=== PATIENT | male | born 1955 | race Caucasian/White ===

== ENCOUNTER 2019-02-20 13:06 | Outpatient (REF) | payer MEDICARE, OTHER, SELFPAY ==
[2019-02-20 21:49] LABS: Anion Gap 12.1 mmol/L (3-11); BUN 12 mg/dL (7-18); CO2 21.9 mmol/L (21.0-32.0); Chloride 105 mmol/L (98-107); Glucose 82 mg/dL (70-100); Potassium 4.5 mmol/L (3.5-5.1); Sodium 139 mmol/L (136-145); TSH 1.61 uIU/mL (0.358-3.74)
== END 2019-02-20 13:26 ==
LOC: NCHCN 13:06
PROVIDERS: PCP Family Medicine; Visit Provider Nurse Practitioner Family
DX: I10 Essential (primary) hypertension (principal); R63.4 Abnormal weight loss
CPT/HCPCS: 80048; 84443

== ENCOUNTER 2019-05-22 13:09 | Outpatient (REF) | payer MEDICARE, OTHER, SELFPAY ==
[2019-05-22 21:41] LABS: Abs Immature Grans 0.02 k/cumm (0.0-0.09); Absolute Basophil Count 0.14 k/cumm (0.0-0.2); Absolute Eosinophil Count 0.67 k/cumm (0.0-0.7); Absolute Lymphocyte Count 2.19 k/cumm (1.2-3.4); Absolute Monocyte Count 0.89 k/cumm (0.11-0.7); Absolute Neutrophil Count 5.07 k/cumm (1.2-6.7); Basophils % 1.6; Eosinophils % 7.5; HCT 45.8 % (40.0-50.0); HGB 15.9 g/dL (13.5-17.5); Immature Grans % 0.2; Lymphocytes % 24.4; Mean Corp. HGB Concentration 34.7 g/dL (32.0-36.0); Mean Corpuscular Hemoglobin 31.7 pg (27.0-33.0); Mean Corpuscular Volume 91.4 fL (80-95); Mean Platelet Volume 10.3 fL (8.0-11.0); Monocytes % 9.9; Neutrophils % 56.4; Platelet Count 292 x1000/uL (130-400); RBC 5.01 m/cumm (4.50-6.00); RBC Distribution Width 13.5 % (11.8-14.1); White Blood Cell Count 8.98 k/cumm (4.4-10.8)
[2019-05-22 22:14] LABS: ALT 11 U/L (16-63); AST 16 U/L (15-37); Albumin 4.1 g/dL (3.4-5.0); Alkaline Phosphatase 72 U/L (46-116); Bilirubin, Total 0.6 mg/dL (0.2-1.0); Total Protein 6.7 g/dL (6.4-8.2)
[2019-05-22 22:31] LABS: Bilirubin, Direct 0.16 mg/dL (0.00-0.20)
== END 2019-05-22 13:29 ==
LOC: NCHCN 13:09
PROVIDERS: PCP Nurse Practitioner Family; Visit Provider Nurse Practitioner Family
DX: R63.4 Abnormal weight loss (principal); F17.200 Nicotine dependence, unspecified, uncomplicated; G89.4 Chronic pain syndrome; M54.5 Low back pain; Z85.46 Personal history of malignant neoplasm of prostate
CPT/HCPCS: 80076; 85025

== ENCOUNTER 2021-07-11 17:55 | Outpatient (REF) | payer MEDICARE, OTHER, SELFPAY ==
[2021-07-11 17:55] LABS: Anion Gap 8.5 mmol/L (3-11); BUN 14 mg/dL (7-18); CO2 26.5 mmol/L (21.0-32.0); CREATININE 0.8 mg/dL (0.70-1.30); Chloride 104 mmol/L (98-107); Glucose 86 mg/dL (74-106); Magnesium 2.1 mg/dL (1.8-2.4); Potassium 4.5 mmol/L (3.5-5.1); Sodium 139 mmol/L (136-145); Vitamin B12 504 pg/mL (193-986)
== END 2021-07-11 17:56 | disposition home or self-care (01) ==
LOC: NCHCN 17:55
PROVIDERS: PCP Nurse Practitioner Family; Visit Provider Nurse Practitioner Family
DX: I10 Essential (primary) hypertension (principal); K21.9 Gastro-esophageal reflux disease without esophagitis
CPT/HCPCS: 80048; 82607; 83735

== ENCOUNTER 2021-12-08 14:51 | Outpatient (REF) | payer MEDICARE, OTHER, SELFPAY ==
[2021-12-10 12:02] LABS: COVID-19 RT-PCR UVMMC Result Negative (Negative)
== END 2021-12-08 14:52 | disposition home or self-care (01) ==
LOC: NCHCN 14:51
PROVIDERS: PCP Nurse Practitioner Family; Visit Provider Nurse Practitioner Family
DX: Z20.822 Contact with and (suspected) exposure to COVID-19 (principal); J06.9 Acute upper respiratory infection, unspecified
CPT/HCPCS: U0003; U0005

== ENCOUNTER 2022-01-12 15:22 | Outpatient (REF) | payer MEDICARE, OTHER, SELFPAY ==
[2022-01-12 14:57] LABS: ALT 20 U/L (16-63); AST 19 U/L (15-37); Albumin 3.7 g/dL (3.4-5.0); Alkaline Phosphatase 68 U/L (46-116); Bilirubin, Direct 0.1 mg/dL (0.0-0.2); Bilirubin, Total 0.4 mg/dL (0.2-1.0); TSH 1.23 uIU/mL (0.36-3.74); Total Protein 6.1 g/dL (6.4-8.2)
[2022-01-12 23:14] LABS: PSA, Screening <0.1 ng/mL (<=4.5)
== END 2022-01-12 15:23 | disposition home or self-care (01) ==
LOC: NCHCN 15:22
PROVIDERS: PCP Nurse Practitioner Family; Visit Provider Nurse Practitioner Family
DX: I25.10 Atherosclerotic heart disease of native coronary artery without angina pectoris (principal); Z12.5 Encounter for screening for malignant neoplasm of prostate; R63.4 Abnormal weight loss; R41.89 Other symptoms and signs involving cognitive functions and awareness; G89.4 Chronic pain syndrome; M54.59 Other low back pain; G35 Multiple sclerosis; I10 Essential (primary) hypertension
CPT/HCPCS: 80076; 84153; 84443

== ENCOUNTER 2022-06-29 13:48 | Outpatient (REF) | payer MEDICARE, OTHER, SELFPAY ==
[2022-06-29 21:37] LABS: HCT 45.4 % (40.0-50.0); HGB 14.9 g/dL (13.5-17.5); MCH 30.7 pg (27.0-33.0); MCHC 32.8 % (32.0-36.0); MCV 94 fL (80-95); MPV 10.2 fL (8.0-11.0); Platelet Count 267 10^3/uL (130-400); RBC 4.85 10^6/uL (4.36-5.78); RDW-SD 44.6 fL; WBC 7.92 10^3/uL (4.4-10.8)
[2022-06-29 22:29] LABS: Anion Gap 6.1 mmol/L (3-11); BUN 15 mg/dL (7-18); CO2 27.9 mmol/L (21.0-32.0); CREATININE 0.8 mg/dL (0.70-1.30); Calcium 9.3 mg/dL (8.5-10.1); Chloride 104 mmol/L (98-107); Glucose 83 mg/dL (74-106); Potassium 4.7 mmol/L (3.5-5.1); Sodium 138 mmol/L (136-145)
== END 2022-06-29 13:49 | disposition home or self-care (01) ==
LOC: NCHCN 13:48
PROVIDERS: PCP Nurse Practitioner Family; Visit Provider Nurse Practitioner Family
DX: I10 Essential (primary) hypertension (principal); M79.605 Pain in left leg
CPT/HCPCS: 80048; 85027

== ENCOUNTER 2023-05-10 19:51 | Outpatient (REF) | payer MEDICARE, OTHER, SELFPAY ==
[2023-05-10 22:07] LABS: HGB 15.3 g/dL (13.5-17.5); MCH 31.9 pg (27.0-33.0); MCV 94 fL (80-95); Platelet Count 269 10^3/uL (130-400); RDW 13.2 % (11.8-14.1); WBC 8.62 10^3/uL (4.4-10.8)
[2023-05-10 23:24] LABS: ALT 27 U/L (16-63); AST 19 U/L (15-37); Albumin 3.9 g/dL (3.4-5.0); Alkaline Phosphatase 71 U/L (46-116); Anion Gap 8.4 mmol/L (3-11); BUN 13 mg/dL (7-18); Bilirubin, Total 0.5 mg/dL (0.2-1.0); CO2 26.6 mmol/L (21.0-32.0); CREATININE 0.8 mg/dL (0.70-1.30); Calcium 9.7 mg/dL (8.5-10.1); Chloride 102 mmol/L (98-107); Glucose 97 mg/dL (74-106); Potassium 4.2 mmol/L (3.5-5.1); Sodium 137 mmol/L (136-145); Total Protein 6.4 g/dL (6.4-8.2); Vitamin B12 428 pg/mL (193-986)
[2023-05-11 18:47] LABS: PSA, Screening <0.1 ng/mL (<=4.5)
== END 2023-05-10 19:52 | disposition home or self-care (01) ==
LOC: NCHCN 19:51
PROVIDERS: PCP Nurse Practitioner Family; Visit Provider Nurse Practitioner Family
DX: I10 Essential (primary) hypertension (principal); G35 Multiple sclerosis; R41.89 Other symptoms and signs involving cognitive functions and awareness; Z12.5 Encounter for screening for malignant neoplasm of prostate; Z85.46 Personal history of malignant neoplasm of prostate
CPT/HCPCS: 80053; 84153; 85027; 82607

== ENCOUNTER 2024-05-15 15:15 | Outpatient (REF) | payer MEDICARE, OTHER, SELFPAY ==
[2024-05-15 22:03] LABS: Abs Immature Grans 0.03 10^3/uL (0.0-0.06); Absolute Basophil Count 0.11 10^3/uL (0.0-0.2); Absolute Eosinophil Count 0.22 10^3/uL (0.0-0.7); Absolute Lymphocyte Count 1.32 10^3/uL (1.2-3.4); Absolute Monocyte Count 0.49 10^3/uL (0.1-0.8); Absolute Neutrophil Count 5.24 10^3/uL (1.2-6.7); Basophils % 1.5 %; HCT 44.7 % (40.0-50.0); HGB 15.1 g/dL (13.5-17.5); Immature Grans % 0.4 %; Lymphocytes % 17.8 %; MCH 31.7 pg (27.0-33.0); MCHC 33.8 % (32.0-36.0); MCV 94 fL (80-95); MPV 9.6 fL (8.0-11.0); Monocytes % 6.6 %; Neutrophils % 70.7 %; Platelet Count 293 10^3/uL (130-400); RBC 4.76 10^6/uL (4.36-5.78); RDW 13.1 % (11.8-14.1); RDW-SD 44.6 fL; WBC 7.41 10^3/uL (4.4-10.8)
[2024-05-15 22:17] LABS: ALT 27 U/L (16-63); AST 21 U/L (15-37); Albumin 3.8 g/dL (3.4-5.0); Alkaline Phosphatase 112 U/L (46-116); Anion Gap 10.5 mmol/L (3-11); BUN 15 mg/dL (7-18); Bilirubin, Total 0.63 mg/dL (0.2-1.0); CO2 25.5 mmol/L (21.0-32.0); CREATININE 0.9 mg/dL (0.70-1.30); Calcium 9.3 mg/dL (8.5-10.1); Chloride 106 mmol/L (98-107); Estimated GFR 93.03 (mL/min/1.73m2); Glucose 104 mg/dL (74-106); Sodium 142 mmol/L (136-145); Total Protein 6.4 g/dL (6.4-8.2)
[2024-05-16 20:53] LABS: PSA, Screening <0.1 ng/mL (<=4.5)
== END 2024-05-15 15:16 | disposition home or self-care (01) ==
LOC: NCHCN 15:15
PROVIDERS: PCP Nurse Practitioner Family; Visit Provider Nurse Practitioner Family
DX: I10 Essential (primary) hypertension (principal); Z12.5 Encounter for screening for malignant neoplasm of prostate
CPT/HCPCS: 80053; 84153; 85025

== ENCOUNTER 2025-04-30 17:27 | Outpatient (REF) | payer MEDICARE, OTHER, SELFPAY ==
[2025-04-30 21:56] LABS: HCT 42.8 % (40.0-50.0); HGB 14.6 g/dL (13.5-17.5); MCH 31.1 pg (27.0-33.0); MCHC 34.1 % (32.0-36.0); MCV 91 fL (80-95); MPV 10.2 fL (8.0-11.0); Platelet Count 256 10^3/uL (130-400); RBC 4.69 10^6/uL (4.36-5.78); RDW 13.4 % (11.8-14.1); RDW-SD 45.1 fL; WBC 6.95 10^3/uL (4.4-10.8)
[2025-04-30 22:22] LABS: ALT 24 U/L (16-63); AST 32 U/L (15-37); Albumin 3.8 g/dL (3.4-5.0); Alkaline Phosphatase 69 U/L (46-116); Anion Gap 6.3 mmol/L (3-11); BUN 12 mg/dL (7-18); Bilirubin, Total 0.8 mg/dL (0.2-1.0); CO2 26.7 mmol/L (21.0-32.0); Calcium 9.2 mg/dL (8.5-10.1); Chloride 103 mmol/L (98-107); Estimated GFR 99.74 (mL/min/1.73m2); Glucose 94 mg/dL (74-106); Potassium 4.2 mmol/L (3.5-5.1); Sodium 136 mmol/L (136-145); TSH 1.23 uIU/mL (0.36-3.74); Total Protein 6.4 g/dL (6.4-8.2)
[2025-04-30 23:37] LABS: Hemoglobin A1C 5.1 % (<5.7)
[2025-05-01 15:16] LABS: Calculated LDL 48 mg/dL (<100); Cholesterol 128 mg/dL (<200); HDL Cholesterol 68 mg/dL (>or=40); Triglyceride 61 mg/dL (<150)
[2025-05-01 20:12] LABS: PSA, Screening <0.1 ng/mL (<=4.5)
== END 2025-04-30 17:28 | disposition home or self-care (01) ==
LOC: NCHCN 17:27
PROVIDERS: PCP Nurse Practitioner Family; Visit Provider Nurse Practitioner Family
DX: R73.03 Prediabetes (principal); Z85.46 Personal history of malignant neoplasm of prostate; I10 Essential (primary) hypertension; E78.5 Hyperlipidemia, unspecified; Z13.29 Encounter for screening for other suspected endocrine disorder
CPT/HCPCS: 80053; 80061; 84153; 85027; 83036; 84443